=== PATIENT | female | born 1970 | race Caucasian/White ===

== ENCOUNTER 2017-10-17 10:16 | Outpatient (CLI) | payer OTHER | END 2017-10-17 11:13 | disposition home or self-care (01) | LOC: NUCLEAR 10:16 | DX: M06.09 Rheumatoid arthritis without rheumatoid factor, multiple sites (principal) | CPT/HCPCS: 78315; A9503 ==

== ENCOUNTER 2022-11-02 09:06 | Emergency (ER) | payer OTHER ==
[~2022-11-02] VITALS: Ht 160 cm; Wt 70.3 kg
[2022-11-02] MEDS ORDERED: COLESTID1 GM (09:35)
[2022-11-02] MEDS ORDERED: NEURONTIN800 MG (09:35)
[2022-11-02] MEDS ORDERED: PREVACID15 M1 (09:36)
[2022-11-02 10:51] LABS: HEMOGLOBIN 13.4 g/dL (12.0-15.00); MEAN CELL VOLUME 89.1 fL (80.00-100.00); MEAN CORPUSCULAR HEMOGLOBIN 29.8 pg (27.00-32.0); MEAN CORPUSCULAR HGB CONC 33.4 g/dl (32.0-36.0); PLATELET COUNT 270 K/uL (150-450); RED BLOOD COUNT 4.49 M/uL (4.00-6.00); RED CELL DISTRIBUTION WIDTH 12.9 % (11.5-14.5)
[2022-11-02 11:10] LABS: CALCIUM 9.8 mg/dL (8.5-10.1); CREATININE SERUM 0.8 mg/dL (0.55-1.02); GFR 75.32; POTASSIUM 3.84 mEq/L (3.5-5.1)
[2022-11-02 11:43] LABS: URINE APPEARANCE Clear; URINE BILIRRUBIN Negative (NEGATIVE); URINE BLOOD Moderate; URINE COLOR Yellow; URINE GLUCOSE Negative (NEGATIVE); URINE LEUKOCYTE Negative; URINE NITRATE Negative; URINE PROTEIN Negative (NEGATIVE); URINE UROBILINOGEN 0.2 E.U./dl
[2022-11-02 11:45] LABS: URINE EPITHELIAL CELLS 2.8 uL (0.0-38.8)
== END 2022-11-02 14:26 | disposition home or self-care (01) ==
LOC: ER 09:06
PROVIDERS: General Practice
DX: N20.1 Calculus of ureter (principal); N23 Unspecified renal colic